=== PATIENT | female | born 1960 | race Hispanic/Latino ===

== ENCOUNTER 2018-09-16 13:45 | Outpatient (CLI) | payer OTHER ==
--- NOTE | 2018-09-16 19:16 | MRI ---
MRI LEFT SHOULDER WITHOUT CONTRAST 09/16/18 HISTORY: M25.215 - left shoulder pain. COMPARISON: Radiograph 09/09/18. FINDINGS: BICEPS TENDON: Mild intra-articular tendinosis. LABRUM: No definite labral tear is appreciated. CARTILAGE: There are some high grade cartilage fissures along the inferior glenoid with some cortical reactive m arrow changes. ROTATOR CUFF: There is high grade undersurface partial tearing of the anterior 1 cm fibers of the supraspinatus ten don likely due to focal full thickness perforation of the mid fibers measuring 10 mm in dimension. Th ere is moderate tendinosis of the infraspinatus tendon with interstitial delamination. MUSCLES: Muscle signal and bulk is normal. SOFT TISSUES: Moderate subacromial/subdeltoid bursal effusion. BONES: There is extensive reactive marrow changes and subcortical cyst formation of the footprint of the gre ater tuberosity. IMPRESSION: 1. Some high grade cartilage fissuring along the inferior glenoid with some cortical reactive ma rrow cystic changes. 2. Large erosions of the footprint of the greater tuberosity at the supraspinatus and infraspina tus tendon insertion. Likely sequela of chronic rotator cuff arthropathy. 3. High grade 75% thickness undersurface partial tearing of the footprint of the anterior 1 cent imeter of the supraspinatus tendon with a 5 mm gap of the torn undersurface fibers. There is extensiv e interstitial delamination of these fibers extending into the infraspinatus tendon. 4. Normal muscle signal and bulk. POS: OFF
== END 2018-09-16 13:46 | disposition home or self-care (01) ==
LOC: SCSMRI 13:45
PROVIDERS: ATTEND Orthopaedic Surgery
DX: M25.512 Pain in left shoulder (principal); M75.102 Unspecified rotator cuff tear or rupture of left shoulder, not specified as traumatic; M85.812 Other specified disorders of bone density and structure, left shoulder

== ENCOUNTER 2018-09-21 09:45 | Outpatient (CLI) | payer OTHER ==
[2018-09-21 10:54] LABS: Hemoglobin 12.7 g/dL (12.0-16.0); Mean Corpuscular HGB CONC 33.5 g/dL (32.0-36.0); Mean Corpuscular Hemoglobin 30.3 pg (27.0-31.0); Mean Corpuscular Volume 90.5 fL (78.0-98.0); Mean Platelet Volume 8.2 fL (7.4-10.4); Platelet Count 197 thou/uL (130-400); RBC Distribution Width 13.4 % (11.5-14.5); White Blood Cell (WBC) Count 7.5 thou/uL (4.8-10.8)
[2018-09-21 11:15] LABS: Anion Gap 10 mmol/L (10-20); BUN (Urea Nitrogen) 18 mg/dL (9.8-20.1); Calc. Creatinine Clearance 0 mL/min (70-130); Calcium 9.6 mg/dL (7.8-10.44); Carbon Dioxide 29 mmol/L (22-29); Chloride 104 mmol/L (98-107); Estimated GFR-MDRD 56; Glucose 199 mg/dL (70-105); Potassium 4.3 mmol/L (3.5-5.1); Sodium 139 mmol/L (136-145)
--- NOTE | 2018-09-21 15:54 | EKG ---
Test Reason : Blood Pressure : / mmHG Vent. Rate : 076 BPM Atrial Rate : 076 BPM P-R Int : 168 ms QRS Dur : 076 ms QT Int : 398 ms P-R-T Axes : 041 062 -03 degrees QTc Int : 447 ms Normal sinus rhythm Abnormal ECG Confirmed by SAI CRESPO ([id number]) on 09/21/2018 3:53:51 PM Referred By: AN Confirmed By:SAI CRESPO
== END 2018-09-21 09:46 | disposition home or self-care (01) ==
LOC: LABBT 09:45
PROVIDERS: ATTEND Orthopaedic Surgery
DX: Z01.818 Encounter for other preprocedural examination (principal); M75.122 Complete rotator cuff tear or rupture of left shoulder, not specified as traumatic; R94.31 Abnormal electrocardiogram [ECG] [EKG]
CPT/HCPCS: 80048; 85027; 93005; 93010

== ENCOUNTER 2018-09-27 07:24 | Day surgery (SDC) | payer OTHER ==
[2018-09-21 10:10] VITALS: BMI 38.4
[2018-09-27] MEDS ORDERED: Midazolam HCl 2 mg/2 ml Vial ONE (08:58)
[2018-09-27] MEDS ORDERED: Fentanyl 100 MCG/2 ML VIAL ONE ×2 (08:58→09:43)
[2018-09-27] MEDS ORDERED: Ondansetron PF 4 MG/2 ML Vial IVP PRN (09:12)
[2018-09-27] MEDS ORDERED: HYDROcodone/Acetaminophen 10/325 mg Tablet PO PRN ×2 (09:12)
[2018-09-27] MEDS ORDERED: traMADol HCl 50 MG TAB PO PRN ×2 (09:12)
[2018-09-27] MEDS ORDERED: Promethazine HCl 25 MG/ML VIAL IM PRN (09:12)
[2018-09-27] MEDS ORDERED: Zolpidem Tartrate 5 MG TAB PO PRN (09:12)
[2018-09-27] MEDS ORDERED: Ropivacaine 0.2% 550 ML 550 ML NERVE BLCK SCH (09:12)
[2018-09-27] MEDS ORDERED: Fentanyl 100 MCG/2 ML VIAL IV PRN (09:12)
[2018-09-27] MEDS ORDERED: Clindamycin/D5W 900 mg/50 ml Premix Bag ONE (09:21)
[2018-09-27] MEDS ORDERED: Levofloxacin 500 mg/D5W 100 ml Premix Bag ONE (09:21)
[2018-09-27] MEDS ORDERED: Bupivacaine/Epinephrine 0.25% 30 ML VIAL ONE (10:13)
[2018-09-27] MEDS ORDERED: Promethazine HCl 25 MG/ML VIAL ONE (11:31)
--- NOTE | 2018-09-27 11:36 | OP ---
DATE OF PROCEDURE: 09/27/2018 PREOPERATIVE DIAGNOSIS: Left full thickness rotator cuff tear. POSTOPERATIVE DIAGNOSIS: Left full thickness rotator cuff tear. PROCEDURE PERFORMED: Left arthroscopic rotator cuff repair, transosseous double row equivalent. STAFF: Papa Elizabeth M.D. HELICOPTER PILOT INSTRUCTOR: None. ANESTHESIA: Do. The patient received general endotracheal intubation, interscalene block. ESTIMATED BLOOD LOSS: 30 mL. TOURNIQUET TIME: None. IMPLANTS: Arthrex 5.5 corkscrew and Arthrex 4.7 SwiveLock. ANTIBIOTICS: Levaquin 500, clindamycin 900. COMPLICATIONS: None. HISTORY OF PRESENT ILLNESS: Ms. Delgado is a 58-year-old female who presented to me with left should er pain. The patient states the pain has been present since May when she relocated from [place]. The pain can be as high as 10/10, history of right rotator cuff repair. She had MRI with full thick ness rotator cuff tear. I discussed with patient the risks and benefits of surgery to include pain, scar, bleeding, infection, damage to vital structures, decreased range of motion or strength, continu ed pain despite surgical intervention, loss of life or limb. The patient understood the risks and be nefits and elected to proceed. PROCEDURE NOTE: Timeout was performed designating the patient's left upper extremity as the operativ e site based on sight, consents, markings. After completion of timeout, the patient was placed in be ach chair position. Left upper extremity was prepped and draped in sterile fashion. Posterior worki ng portals were placed, visualize intraarticularly. You could see the tear intraarticularly, I saw t he biceps which was intact. The subscap had kind of a leading edge tear, but otherwise intact. I di d not see anything in the labrum, glenoid or humerus. I then moved subacromially and debrided the bu rsa, took down the patient's CA ligament, found my footprint for the tear in the rotator cuff. I chanel rided off the bone at the rotator cuff insertion, place my anchor, 5.5 corkscrew into position, passe d four sutures in horizontal mattress fashion, tied 2 knots and placed it down into the second row wi th my 4.7 SwiveLock. There was still a little bit of dog ears so I took one of the strands of the Sw iveLock and used that to tie down the little small dog ear. I then took final pictures, washed and c losed with 3-0 nylon. The patient will follow up with me in 2 weeks. The patient will remain in her elbow sling. Elbow, w rist, and hand motion. The patient will begin passive range of motion at the 2-week prema.
[2018-09-27] MEDS ORDERED: Ropivacaine 0.2% HCl/PF (40 MG/20 ML VIAL) ONE (13:32)
[2018-09-27] MEDS ORDERED: Bupivacaine HCl 0.5%/Epinephrine 1:200,000/PF 30 ml Vial ONE (13:32)
[2018-09-27] MEDS ORDERED: Ondansetron PF 4 MG/2 ML Vial ONE (13:36)
[2018-09-27] MEDS ORDERED: ePHEDrine/0.9% NaCl/PF SYRINGE 50 mg/10 ml ONE (13:36)
[2018-09-27] MEDS ORDERED: Lidocaine 1% PF 5 ML VIAL ONE (13:36)
[2018-09-27] MEDS ORDERED: PROPOFOL 200 MG/20 ML VIAL ONE (13:36)
[2018-09-27] MEDS ORDERED: PHENYLEPHRINE-NS 100 MCG/ML 10 ML SYRINGE ONE (13:36)
[2018-09-27] MEDS ORDERED: Glycopyrrolate 0.2 MG/ML 5 ML SYRINGE ONE (13:36)
== END 2018-09-27 14:54 | disposition home or self-care (01) ==
LOC: SDC 07:24
PROVIDERS: ATTEND Orthopaedic Surgery
PROC: 0LQ24ZZ Repair Left Shoulder Tendon, Percutaneous Endoscopic Approach (ICD-10-PCS; principal; 2018-09-27)
DX: M75.122 Complete rotator cuff tear or rupture of left shoulder, not specified as traumatic (principal); E11.9 Type 2 diabetes mellitus without complications; M10.9 Gout, unspecified; E78.00 Pure hypercholesterolemia, unspecified; J45.909 Unspecified asthma, uncomplicated; Z87.891 Personal history of nicotine dependence; Z88.0 Allergy status to penicillin; Z88.2 Allergy status to sulfonamides; Z88.6 Allergy status to analgesic agent; Z79.4 Long term (current) use of insulin; Z79.899 Other long term (current) drug therapy
CPT/HCPCS: 36416; 96374; A4306; C1713; J1956; J2250; J2550; J2795; J3010; J3490

== ENCOUNTER 2019-03-01 11:22 | Day surgery (SDC) | payer OTHER ==
[2019-02-28 11:45] VITALS: BMI 37.2
--- NOTE | 2019-03-01 07:42 | HP ---
HISTORY OF PRESENT ILLNESS: This is a 58-year-old female, comes for EGD because of abdominal pain. The patient has had abdominal pain over the last several months. She has noted chronic acid reflux and had an EGD done 6 years ago. She was told to have esophagitis and placed on PPI. The patient comes in with abdominal pain and also nausea. The pain is over the epigastric area. The pain is burning in nature. The pain occurs every day. The patient is undergoing EGD because of abdominal pain in spite of taking famotidine and also omeprazole, etc. ALLERGIES: ALLERGIC TO PENICILLIN, SULFA, AND IBUPROFEN. SOCIAL HISTORY: The patient quit smoking 18 years ago. Does not drink alcohol. MEDICAL ILLNESSES: 1. Diabetes mellitus. 2. Hypertension. 3. Hyperlipidemia. 4. Hypothyroidism. 5. Obesity. 6. Osteoarthritis. 7. Anxiety and depression. 8. Migraine headache. 9. Chronic kidney disease. 10. Hysterectomy. 11. Appendectomy. 12. Cholecystectomy. 13. Status post bilateral shoulder surgery. PHYSICAL EXAMINATION: VITAL SIGNS: Pulse is 70, blood pressure 130/70. HEENT: Conjunctivae clear. CARDIOVASCULAR: First and second heart sounds heard. LUNGS: Clear to auscultation. ABDOMEN: Soft. Abdomen is tender over the epigastric area. There is no rebound or guarding. Bowel sounds normal. ADMITTING DIAGNOSES: Abdominal pain, chronic acid reflux. Her symptoms persists after taking omeprazole, femotadine, and ranitidine. The patient is undergoing esophagogastroduodenoscopy. Job ID: [id number]
[2019-03-01] MEDS ORDERED: Insulin Regular 300 UNITS/3 ML VIAL ONE (12:14)
[2019-03-01] MEDS ORDERED: Lidocaine 1% PF 5 ML VIAL ONE (13:47)
[2019-03-01] MEDS ORDERED: PROPOFOL 200 MG/20 ML VIAL ONE (13:47)
--- NOTE | 2019-03-01 17:36 | OP ---
DATE OF PROCEDURE: 03/01/2019 OPERATIVE PROCEDURES: Esophagogastroduodenoscopy with biopsy. PREOPERATIVE DIAGNOSES: Abdominal pain and chronic acid reflux. POSTOPERATIVE DIAGNOSES: 1. Two small erosion of the gastroesophageal junction, otherwise normal exam of mucosa. 2. Mild antral gastritis. DESCRIPTION OF PROCEDURE: The patient was placed on the left lateral position and was given sedation by Anesthesia Department. A Pentax videogastroscope under direct vision passed down the oropharynx past the GE junction into the stomach and subsequently into the descending duodenum. The vocal cords appeared healthy. The esophagus appeared normal throughout the scope. At the GE junction, the patient was found to have 2 small erosions. Biopsy obtained from the area. Retroflexion failed to show any pathology in the fundus and cardia. In the gastric body, no pathology. The gastric antrum indicating gastritis. Biopsy obtained of the gastric antrum and gastric body. The duodenal bulb and descending duodenum, no pathology. The stomach decompressed and scope removed. DISCHARGE PLAN: This is a 58-year-old female with abdominal pain, chronic acid reflux, came for the EGD. The EGD showed 2 small erosions over the GE junction and mild gastritis. The patient did well postprocedure to be discharged home. DISCHARGE INSTRUCTIONS: 1. May try omeprazole 40 once a day. 2. We will await the gastric biopsy and further recommendation. Job ID: [id number]
== END 2019-03-01 15:10 | disposition home or self-care (01) ==
LOC: SDC 11:22
PROVIDERS: ATTEND Internal Medicine Gastroenterology
PROC: 0DB58ZX Excision of Esophagus, Via Natural or Artificial Opening Endoscopic, Diagnostic (ICD-10-PCS; principal; 2019-03-01)
PROC: 0DB68ZX Excision of Stomach, Via Natural or Artificial Opening Endoscopic, Diagnostic (ICD-10-PCS; principal; 2019-03-01)
DX: K22.10 Ulcer of esophagus without bleeding (principal); K21.0 Gastro-esophageal reflux disease with esophagitis; K29.60 Other gastritis without bleeding; R10.9 Unspecified abdominal pain; I12.9 Hypertensive chronic kidney disease with stage 1 through stage 4 chronic kidney disease, or unspecified chronic kidney disease; N18.9 Chronic kidney disease, unspecified; E11.22 Type 2 diabetes mellitus with diabetic chronic kidney disease; E03.9 Hypothyroidism, unspecified; E66.9 Obesity, unspecified; M19.90 Unspecified osteoarthritis, unspecified site; F41.8 Other specified anxiety disorders; F32.9 Major depressive disorder, single episode, unspecified; G43.909 Migraine, unspecified, not intractable, without status migrainosus; Z68.37 Body mass index [BMI] 37.0-37.9, adult; Z87.891 Personal history of nicotine dependence; Z88.2 Allergy status to sulfonamides; Z88.8 Allergy status to other drugs, medicaments and biological substances
CPT/HCPCS: 36416; 88305; 88312; 88313; J1815; J2001; J2704

== ENCOUNTER 2019-08-03 15:31 | Emergency (ER) | payer OTHER ==
[2019-08-03 17:40] LABS: #Basophils 0.1 thou/uL (0.0-0.2); #Eosinphils 0.2 thou/uL (0.0-0.7); #Lymphocytes 1.7 thou/uL (1.20-3.40); #Monocytes 0.4 thou/uL (0.11-0.59); #Neutrophils 2.3 thou/uL (1.40-6.50); %Basophils 1.3 % (0.0-1.0); %Eosinophils 4.7 % (0.0-10.0); %Lymphocytes 36.9 % (21.0-51.0); %Monocytes 8.5 % (0.0-10.0); %Neutrophils 48.7 % (42.0-75.0); Hemoglobin 12.7 g/dL (12.0-16.0); Mean Corpuscular HGB CONC 34.7 g/dL (32.0-36.0); Mean Corpuscular Volume 86.5 fL (78.0-98.0); Mean Platelet Volume 9.2 fL (7.4-10.4); Platelet Count 120 thou/uL (130-400); RBC Distribution Width 12.5 % (11.5-14.5); Red Blood Cell (RBC) Count 4.24 mill/uL (4.20-5.40); White Blood Cell (WBC) Count 4.7 thou/uL (4.8-10.8)
--- NOTE | 2019-08-03 17:54 | RAD ---
RADIOGRAPH CHEST 2 VIEWS: DATE: 08/03/2019 HISTORY: 59-year-old female with cough and fever FINDINGS: There is no airspace density, pulmonary edema, pleural effusion, pneumothorax, or cardiomegaly. IMPRESSION: No acute cardiopulmonary findings.
[2019-08-03 18:02] LABS: ALT (SGPT) 16 U/L (8-55); AST (SGOT) 17 U/L (5-34); Alkaline Phosphatase 100 U/L (40-150); Anion Gap 13 mmol/L (10-20); BUN (Urea Nitrogen) 15 mg/dL (9.8-20.1); Bilirubin, Total 0.5 mg/dL (0.2-1.2); Calc. Creatinine Clearance 0 mL/min (70-130); Calcium 8.4 mg/dL (7.8-10.44); Carbon Dioxide 22 mmol/L (22-29); Chloride 102 mmol/L (98-107); Estimated GFR-MDRD 46; Globulin 2.4 g/dL (2.4-3.5); Glucose 410 mg/dL (70-105); Potassium 3.7 mmol/L (3.5-5.1); Protein, Total 6.4 g/dL (6.0-8.3); Sodium 133 mmol/L (136-145)
[2019-08-03] MEDS ORDERED: Insulin Regular 300 UNITS/3 ML VIAL ONE (18:59)
--- NOTE | 2019-08-05 15:36 | EKG ---
Test Reason : Blood Pressure : / mmHG Vent. Rate : 072 BPM Atrial Rate : 072 BPM P-R Int : 180 ms QRS Dur : 074 ms QT Int : 408 ms P-R-T Axes : 031 052 025 degrees QTc Int : 446 ms Normal sinus rhythm Low voltage QRS Nonspecific T wave abnormality Abnormal ECG Confirmed by NIKI CAO ([id number]), editorial assistant TAIWO ISSA ([id number]) on 08/05/2019 3:36:08 PM Referred By: Confirmed By:NIKI CAO
== END 2019-08-03 19:58 | disposition home or self-care (01) ==
LOC: ERS 15:31
DX: J04.0 Acute laryngitis (principal); E11.9 Type 2 diabetes mellitus without complications; I10 Essential (primary) hypertension; K21.9 Gastro-esophageal reflux disease without esophagitis; M19.90 Unspecified osteoarthritis, unspecified site; J45.909 Unspecified asthma, uncomplicated; F41.9 Anxiety disorder, unspecified; F32.9 Major depressive disorder, single episode, unspecified; Z87.891 Personal history of nicotine dependence; Z79.899 Other long term (current) drug therapy; Z85.850 Personal history of malignant neoplasm of thyroid; Z79.4 Long term (current) use of insulin
CPT/HCPCS: 36415; 36416; 71046; 80053; 84484; 85025; 85379; 93005; 94640; 94760; 96361; 96374; J1815; J7620

== ENCOUNTER 2019-11-26 11:57 | Observation (INO) | payer OTHER ==
[~2019-11-26 11:57] MED LIST: Iopamidol-370 76% 500 ML 1 ML ONE
[2019-11-26 12:48] LABS: #Basophils 0.1 thou/uL (0.0-0.2); #Eosinphils 0.2 thou/uL (0.0-0.7); #Monocytes 0.5 thou/uL (0.11-0.59); #Neutrophils 5.4 thou/uL (1.40-6.50); %Basophils 0.6 % (0.0-1.0); %Eosinophils 2.4 % (0.0-10.0); %Lymphocytes 23.9 % (21.0-51.0); %Monocytes 6.5 % (0.0-10.0); %Neutrophils 66.6 % (42.0-75.0); Hemoglobin 13.5 g/dL (12.0-16.0); Mean Corpuscular HGB CONC 34.6 g/dL (32.0-36.0); Mean Corpuscular Hemoglobin 29.4 pg (27.0-31.0); Mean Platelet Volume 9.5 fL (7.4-10.4); Platelet Count 208 thou/uL (130-400); RBC Distribution Width 12.2 % (11.5-14.5); White Blood Cell (WBC) Count 8.1 thou/uL (4.8-10.8)
[2019-11-26] MEDS ORDERED: Morphine 4 MG/ML VIAL ONE ×2 (12:56→15:24)
[2019-11-26] MEDS ORDERED: Ondansetron PF 4 MG/2 ML Vial ONE (12:56)
[2019-11-26 13:02] LABS: Bilirubin Negative (Negative); Blood, Urine Negative (Negative); Clarity Clear (Clear); Glucose, Urine (Dipstick) Greater than 1000 mg/dL (Negative); Leukocyte Negative Leu/uL (Negative); Nitrite Negative (Negative); Protein, Urine (Dipstick) Negative (Neg-Trace); Urobilinogen Normal mg/dL (Less than 2)
[2019-11-26 13:11] LABS: ALT (SGPT) 11 U/L (8-55); AST (SGOT) 9 U/L (5-34); Albumin 4.4 g/dL (3.5-5.0); Alkaline Phosphatase 126 U/L (40-110); Anion Gap 17 mmol/L (10-20); BUN (Urea Nitrogen) 17 mg/dL (9.8-20.1); Bilirubin, Total 0.7 mg/dL (0.2-1.2); Calc. Creatinine Clearance 0 mL/min (70-130); Calcium 9.8 mg/dL (7.8-10.44); Carbon Dioxide 18 mmol/L (22-29); Chloride 101 mmol/L (98-107); Estimated GFR-MDRD 50; Globulin 3.6 g/dL (2.4-3.5); Glucose 426 mg/dL (70-105); Potassium 4.2 mmol/L (3.5-5.1); Sodium 132 mmol/L (136-145)
--- NOTE | 2019-11-26 14:30 | CT ---
CT ABDOMEN AND PELVIS WITH IV CONTRAST: HISTORY: Abdominal pain. Diverticulitis. COMPARISON: 02/18/2017 FINDINGS: The lung bases are unremarkable. There is an incompletely visualized right pericardiac cyst, measurin g 6 cm in AP dimension. There is fatty infiltration of the liver. The patient is post cholecystectomy and hysterectomy. The spleen, pancreas, adrenal glands and kidneys are unremarkable. No free air, fr ee fluid or lymphadenopathy is seen in the abdomen or pelvis. There are vascular calcifications witho ut evidence of aneurysmal dilatation of the abdominal aorta. There are degenerative changes in the sp ine. The small bowel loops are not abnormally dilated. There is colonic diverticulosis. There is thickenin g of the wall of the sigmoid colon and pericolonic inflammatory change in the left lower quadrant. IMPRESSION: Sigmoid diverticulitis in the left lower quadrant. POS: DAVIS
[2019-11-26] MEDS ORDERED: metroNIDAZOLE 500 MG/100 ML BAG ONE (15:26)
[2019-11-26] MEDS ORDERED: Ondansetron ODT 4 MG TAB SL PRN (18:05)
[2019-11-26] MEDS ORDERED: Sodium Chloride 0.9% 1,000 ML IV SCH (18:05)
[2019-11-26] MEDS ORDERED: Ondansetron PF 4 MG/2 ML Vial IVP PRN ×2 (18:05→19:23)
[2019-11-26 18:34] VITALS: BMI 38.2
[2019-11-26] MEDS ORDERED: Acetaminophen 325 MG TAB PO PRN (19:23)
[2019-11-26] MEDS ORDERED: Dextrose 5% in Water 1,000 ML IV PRN (19:23)
[2019-11-26] MEDS ORDERED: Ondansetron ODT 4 MG TAB PO PRN (19:23)
[2019-11-26] MEDS ORDERED: Albuterol Sulfate 1.25 MG/3 ML NEB NEB PRN (19:27)
[2019-11-26] MEDS ORDERED: Morphine 2 MG/ML SYRINGE SLOW IVP PRN (19:27)
[2019-11-26] MEDS ORDERED: Dextrose 50% Abboject 50 ML SYRINGE SLOW IVP PRN (19:29)
--- NOTE | 2019-11-26 20:36 | HP ---
CHIEF COMPLAINT: "My diverticulitis flared up." HISTORY OF PRESENT ILLNESS: This is a 59-year-old female with history of type 2 diabetes, on insulin; chronic kidney disease, stage 3; hypertension; dyslipidemia; thyroid cancer with history of thyroidectomy, chemo and radiation; asthma who presents to the emergency room with the above complaint. The patient reports the last flare was in September for which she was seen in the ER, discharged to home , and had about one week of symptoms. She reports onset of left-sided abdominal pain, described as sharp, constant, and a bloating sensation along the left side starting 2 days ago. She denies any radiation, states the pain was 10/10 earlier, and with pain medication is now 7/10. She has associated nausea but no vomiting, denies any fevers or chills. She reports this is identical to flares in the past, and reports a change in her diet that she thinks attributed to the onset. She denies any relieving factors. In the emergency room, the patient received Cipro 400 mg IV, Flagyl 500 mg IV, morphine 4 mg x2, Zofran 4 mg, 2 L IV fluid, and hospitalist called for admission. ALLERGIES: ALLERGIES TO MEDICINE ARE, 1. ASPIRIN. 2. CODEINE. 3. IBUPROFEN. 4. PENICILLINS. 5. SULFA. CURRENT MEDICATIONS: Reconciled with the patient, 1. Vitamin D 5000 units daily. 2. BuSpar 10 mg t.i.d. 3. Levothyroxine 150 mcg daily. 4. Atorvastatin 80 mg daily. 5. Lisinopril 20 mg daily. 6. Levemir 50 units twice daily. 7. NovoLog sliding scale for which she uses between 1 and 20 units with meals. 8. Albuterol as needed. PAST MEDICAL HISTORY: 1. Dyslipidemia. 2. Anxiety. 3. Chronic kidney disease, stage 3. 4. Type 2 diabetes, on insulin. 5. GERD. 6. Hypertension. 7. Asthma. 8. Diverticulitis. 9. Thyroid cancer, status post thyroidectomy, chemo, radiation. PAST SURGICAL HISTORY: 1. Appendectomy. 2. Cholecystectomy. 3. section. 4. Hysterectomy. 5. Tonsillectomy. 6. Thyroidectomy. 7. Bilateral shoulders. SOCIAL HISTORY: The patient quit tobacco about 5 years ago, she lives alone, and her sister, Bridget is her surrogate decision maker. She is a full code. FAMILY HISTORY: Negative for any GI disorders. REVIEW OF SYSTEMS: Positive for nausea, negative for vomiting, fevers, chills, diarrhea, shortness of breath, or chest pain. All remaining review of systems are reviewed and negative. PHYSICAL EXAMINATION: VITAL SIGNS: Temperature 97.6, pulse 75, respirations 15, sat 99% on room air, and blood pressure 124/70. GENERAL: Awake, alert, responsive, in no apparent distress. Able to speak in full sentences. HEENT: Her pupils are equal and round. Oral mucosa is pink and moist. NECK: Supple. Tenderness to palpation in the left submental area. No palpable abnormalities. LYMPH: No palpable anterior cervical lymphadenopathy. LUNGS: Some faint basilar rales at the right base, no audible wheezing or rhonchi. Good air movement. HEART: Normal S1, S2. No significant murmur. ABDOMEN: Soft with present bowel sounds. Tenderness to palpation throughout the left side. No palpable abnormalities. SKIN: No visible rashes. EXTREMITIES: No clubbing, cyanosis, or edema. VASCULAR: 2+ dorsalis pedis pulses. NEURO: No gross deficits. PSYCH: Appears euthymic. LABORATORY DATA: Labs reviewed today. CBC: 8.1, 13.5, 39.1, 208. Renal panel: 132, 4.2, 101, 18, 17, 1.11, 426, the sodium does correct to normal. T-bilirubin 0.7, AST 9, ALT 11, alkaline phosphatase 126, total protein 8, and albumin 4.4. Urine greater than [address] abdomen and pelvis personally reviewed, sigmoid diverticulitis in the left lower quadrant, lung bases unremarkable, incompletely visualized right pericardiac cyst, measuring 6 cm, fatty infiltration of the liver. IMPRESSION: 1. Sigmoid diverticulitis. 2. Chronic kidney disease, stage 3, stable. 3. Diabetes mellitus type 2, uncontrolled. 4. Hypertension, appears controlled. 5. Anxiety. 6. Dyslipidemia. 7. Asthma, no signs of exacerbation. 8. Hypothyroidism secondary to thyroidectomy. 9. GERD. 10. Fatty liver based on CT scan. 11. Pericardiac cyst based on CT scan. PLAN: 1. Observation status in the hospital. 2. Gentle hydration, clear liquid diet. 3. Continue Cipro and Flagyl IV. Transition to oral as she is able to take it. 4. Continuing pain management. 5. Hold lisinopril for now, monitor renal function and resume when bp's are elevated. 6. We will continue her thyroid replacement, statin. 7. Continuing Levemir at the 50 units twice a day, adding a sliding scale insulin. 8. Albuterol p.r.n. if needed. 9. We will need outpatient followup for the pericardiac cyst and fatty liver. 10. Anticipated length of stay is 24 hours to start, will be based on ability to manage pain with p.o. pain medication. 11. DVT prophylaxis. The patient is ambulatory. We will use SCDs. 12. GI prophylaxis, not indicated. 13. Code status is full. Surrogate decision maker is the patient's sister. 14. Reviewed the plan of care with the patient. No questions or further needs at the end of evaluation. 15. The patient is at high risk given age, comorbidities, and current presentation. Job ID: [id number] MTDD
[2019-11-26] MEDS: metroNIDAZOLE 500 MG in Premix Bag 1 BAG IVPB SCH (20:45)
[2019-11-26] MEDS: Sodium Chloride 0.9% 1,000 ML IV SCH (20:45)
[2019-11-26] MEDS: busPIRone HCl 10 MG TAB PO SCH (20:45)
[2019-11-26] MEDS: Atorvastatin Calcium 40 MG TAB PO SCH (20:46)
[2019-11-26] MEDS: Morphine 4 MG/ML VIAL SLOW IVP PRN (20:46)
[2019-11-26] MEDS: HumaLOG 300 UNITS/3 ML VIAL SC PRN (20:54)
[2019-11-26] MEDS ORDERED: Insulin Glargine 50 UNITS in Pre-Filled Syringe SC SCH (21:00)
[2019-11-27] MEDS: Morphine 4 MG/ML VIAL SLOW IVP PRN (02:14)
[2019-11-27 04:38] LABS: #Basophils 0.1 thou/uL (0.0-0.2); #Eosinphils 0.2 thou/uL (0.0-0.7); #Lymphocytes 1.5 thou/uL (1.20-3.40); #Monocytes 0.6 thou/uL (0.11-0.59); #Neutrophils 5.4 thou/uL (1.40-6.50); %Basophils 0.7 % (0.0-1.0); %Eosinophils 2.6 % (0.0-10.0); %Lymphocytes 19.6 % (21.0-51.0); %Monocytes 7.7 % (0.0-10.0); %Neutrophils 69.4 % (42.0-75.0); Hemoglobin 11.4 g/dL (12.0-16.0); Mean Corpuscular HGB CONC 33.6 g/dL (32.0-36.0); Mean Corpuscular Hemoglobin 29.1 pg (27.0-31.0); Mean Corpuscular Volume 86.5 fL (78.0-98.0); Mean Platelet Volume 9.6 fL (7.4-10.4); Platelet Count 168 thou/uL (130-400); Red Blood Cell (RBC) Count 3.93 mill/uL (4.20-5.40); White Blood Cell (WBC) Count 7.8 thou/uL (4.8-10.8)
[2019-11-27 05:00] LABS: Anion Gap 11 mmol/L (10-20); BUN (Urea Nitrogen) 12 mg/dL (9.8-20.1); Calc. Creatinine Clearance 116 mL/min (70-130); Calcium 8.3 mg/dL (7.8-10.44); Carbon Dioxide 21 mmol/L (22-29); Chloride 108 mmol/L (98-107); Estimated GFR-MDRD 72; Glucose 288 mg/dL (70-105); Potassium 4.1 mmol/L (3.5-5.1); Sodium 136 mmol/L (136-145)
[2019-11-27] MEDS: Levothyroxine 150 MCG TAB PO SCH (05:17)
[2019-11-27] MEDS: metroNIDAZOLE 500 MG in Premix Bag 1 BAG IVPB SCH (05:17)
[2019-11-27] MEDS: HumaLOG 300 UNITS/3 ML VIAL SC PRN ×3 (06:17→21:07)
[2019-11-27] MEDS: traMADol HCl 50 MG TAB PO PRN ×3 (08:32→18:45)
[2019-11-27] MEDS: busPIRone HCl 10 MG TAB PO SCH ×3 (08:32→20:25)
--- NOTE | 2019-11-27 08:43 | PDOC.FM ---
- Subjective Subjective: Pt reports abdominal pain is marginally better, she has just eaten breakfast and is tolerating it so far. Denies new complaints no fever/chills, nausea/no vomiting. - Objective Vital Signs & Weight: Vital Signs (12 hours) Temp Pulse Resp BP BP Pulse Ox 11/27/19 07:05 98.6 F 77 20 118/55 L 96 11/27/19 03:03 98.9 F 84 18 118/72 98 11/26/19 23:20 98.2 F 77 16 99/50 L 94 L Weight Weight 98.021 kg I&O: 11/26/19 11/27/19 11/28/19 06:59 06:59 06:59 Intake Total 740 Output Total 1200 Balance -460 Result Diagrams: 11/27/19 04:19 11/27/19 04:19 Phys Exam - Physical Examination Constitutional: NAD HEENT: moist MMs, sclera anicteric Neck: supple, full ROM Respiratory: no wheezing, clear to auscultation bilateral Cardiovascular: RRR, no significant murmur Gastrointestinal: soft TTP to L quadrants, no rebound tenderness Musculoskeletal: no edema, pulses present Neurological: normal sensation, moves all 4 limbs Psychiatric: normal affect, A&O x 3 Skin: no rash, normal turgor Dx/Plan (1) Acute diverticulitis Code(s): K57.92 - DVTRCLI OF INTEST, PART UNSP, W/O PERF OR ABSCESS W/O BLEED Status: Acute (2) Dehydration Code(s): E86.0 - DEHYDRATION Status: Acute (3) Hyperglycemia due to type 2 diabetes mellitus Code(s): E11.65 - TYPE 2 DIABETES MELLITUS WITH HYPERGLYCEMIA Status: Acute (4) Morbid obesity with BMI of 40.0-44.9, adult Code(s): E66.01 - MORBID (SEVERE) OBESITY DUE TO EXCESS CALORIES; Z68.41 - BODY MASS INDEX (BMI) 40.0-44.9, ADULT Status: Chronic - Plan Plan: Acute uncomplicated diverticulitis A- admitted for IV ABX and pain control. Pain seems to be improving, tolerating PO now P-Continue IV flagyl and cipro -will transition to PO Tramadol for pain as trial -monitor pts pain control and PO intake, possible DC later today vs. tomorrow DM2 A- fasting sugars elevated indicating poor control P- will consider increasing insulin -SSI, ACHS accuchecks CKD3, GERD, HTN, Asthma -stable, continue home meds CODE: FULL Addendum - Attending - Attending Attestation Date/Time: 11/27/19 3112 I personally evaluated the patient and discussed the management with Dr. Farris. I agree with the History, Examination, Assessment and Plan documented above with any addition or exceptions noted below.
[2019-11-27] MEDS: Insulin Glargine 55 UNITS in Pre-Filled Syringe 1 EACH SC SCH (09:00)
[2019-11-27] MEDS ORDERED: Insulin Glargine 50 UNITS in Pre-Filled Syringe SC SCH (09:00)
[2019-11-27] MEDS: metroNIDAZOLE 500 MG TAB PO SCH ×2 (15:39→20:25)
[2019-11-27] MEDS: Sodium Chloride 0.9% 1,000 ML IV SCH (18:28)
[2019-11-27] MEDS: Cipro 250 MG TAB PO SCH (20:25)
[2019-11-27] MEDS: Atorvastatin Calcium 40 MG TAB PO SCH (20:25)
[2019-11-27] MEDS ORDERED: Insulin Glargine 55 UNITS in Pre-Filled Syringe 1 EACH SC SCH (21:00)
[2019-11-28] MEDS: traMADol HCl 50 MG TAB PO PRN ×2 (04:08→11:12)
[2019-11-28] MEDS: Levothyroxine 150 MCG TAB PO SCH (04:08)
[2019-11-28] MEDS: Cipro 250 MG TAB PO SCH (04:08)
[2019-11-28] MEDS: Insulin Glargine 55 UNITS in Pre-Filled Syringe 1 EACH SC SCH (08:22)
[2019-11-28] MEDS: busPIRone HCl 10 MG TAB PO SCH (08:22)
[2019-11-28] MEDS: metroNIDAZOLE 500 MG TAB PO SCH (08:22)
--- NOTE | 2019-11-28 09:00 | PDOC.FM ---
- Subjective Subjective: feeling much better, no baseline abd pain, no nausea/vomiting. no new complaints. - Objective Vital Signs & Weight: Vital Signs (12 hours) Temp Pulse Resp BP BP Pulse Ox 11/28/19 07:10 98.3 F 74 15 124/60 96 11/28/19 04:06 98.9 F 79 16 126/58 L 96 11/27/19 23:00 98.2 F 71 16 126/58 L 97 Weight Weight 98.021 kg I&O: 11/27/19 11/28/19 11/29/19 06:59 06:59 06:59 Intake Total 740 1740 Output Total 1200 405 Balance -460 1335 Result Diagrams: 11/27/19 04:19 11/27/19 04:19 Phys Exam - Physical Examination Constitutional: NAD HEENT: moist MMs, sclera anicteric Neck: no nodes, supple Respiratory: no wheezing, clear to auscultation bilateral Cardiovascular: RRR, no significant murmur Gastrointestinal: soft mild ttp in LLQ Musculoskeletal: no edema, pulses present Neurological: normal sensation, moves all 4 limbs Psychiatric: normal affect, A&O x 3 Skin: no rash, normal turgor Dx/Plan (1) Acute diverticulitis Code(s): K57.92 - DVTRCLI OF INTEST, PART UNSP, W/O PERF OR ABSCESS W/O BLEED Status: Acute (2) Dehydration Code(s): E86.0 - DEHYDRATION Status: Acute (3) Hyperglycemia due to type 2 diabetes mellitus Code(s): E11.65 - TYPE 2 DIABETES MELLITUS WITH HYPERGLYCEMIA Status: Acute (4) Morbid obesity with BMI of 40.0-44.9, adult Code(s): E66.01 - MORBID (SEVERE) OBESITY DUE TO EXCESS CALORIES; Z68.41 - BODY MASS INDEX (BMI) 40.0-44.9, ADULT Status: Chronic - Plan Plan: Acute uncomplicated diverticulitis A- resolving, stable for DC P-Continue PO flagyl and cipro -PO tramadol for pain -will DC home CKD3, GERD, HTN, Asthma, DM2 -stable, continue home meds CODE: FULL Addendum - Attending - Attending Attestation Date/Time: 11/28/19 3510 I personally evaluated the patient and discussed the management with the team. I agree with the History, Examination, Assessment and Plan documented above with any addition or exceptions noted below. Pain has improved, tolerating PO, d/c today.
[2019-11-28] MEDS: HumaLOG 300 UNITS/3 ML VIAL SC PRN (11:08)
[2019-11-28 11:32] VITALS: BP 115/57; TEMP 97.6
--- NOTE | 2019-11-29 04:25 | DIS ---
DATE OF ADMISSION: 11/26/2019 DATE OF DISCHARGE: 11/28/2019 ADMITTING ATTENDING: Hospitalist, Niurka Juarez MD DISCHARGE ATTENDING: Wilfrido Olivier MD RESIDENT: Miguel Angel Farris MD CONSULTS: None. PROCEDURES PERFORMED: On 11/26/2019, abdomen and pelvis CT. Impression: Sigmoid diverticulitis in the left lower quadrant. DISCHARGE MEDICATIONS: 1. Insulin Levemir 50 units subcutaneous b.i.d. 2. Buspirone 10 mg p.o. t.i.d. 3. Atorvastatin 80 mg p.o. at bedtime. 4. Lisinopril 20 mg p.o. q.a.m. 5. Levothyroxine 150 mcg p.o. q.a.m. 6. Vitamin D 5000 units p.o. daily. 7. Famotidine 40 mg p.o. at bedtime. 8. Ciprofloxacin 500 mg p.o. b.i.d. x8 days. 9. Metronidazole 500 mg p.o. t.i.d. x8 days. 10. Tramadol 50 mg p.o. q.4 hours p.r.n. DISCONTINUED MEDICATIONS: None. PRIMARY DIAGNOSES: Acute on chronic uncomplicated diverticulitis and intractable abdominal pain. SECONDARY DIAGNOSES: Chronic kidney disease 3, gastroesophageal reflux disease, hypertension, asthma, type 2 diabetes. HISTORY OF PRESENT ILLNESS/HOSPITAL COURSE: This is a 59-year-old female, who presented with intractable abdominal pain, which was found to be secondary to uncomplicated diverticulitis. The patient was admitted for IV antibiotics and pain control, which was achieved initially with [place]. The patient quickly transitioned to p.o. antibiotics and p.o. tramadol for pain control and did well over the couple of days. DISPOSITION: Stable. DISCHARGE INSTRUCTIONS: 1. Location: Home. 2. Activity: As tolerated. 3. Diet: Diabetic. 4. Followup: Follow up with PCP in 7 days. Job ID: [id number] [facility]
== END 2019-11-28 12:43 | disposition home or self-care (01) ==
LOC: ERS 11:57 → 2SW 18:16
PROVIDERS: ADMIT Family Medicine; ATTEND Family Medicine
DX: K57.32 Diverticulitis of large intestine without perforation or abscess without bleeding (principal); I12.9 Hypertensive chronic kidney disease with stage 1 through stage 4 chronic kidney disease, or unspecified chronic kidney disease; E11.22 Type 2 diabetes mellitus with diabetic chronic kidney disease; N18.3 Chronic kidney disease, stage 3 (moderate); J45.909 Unspecified asthma, uncomplicated; K21.9 Gastro-esophageal reflux disease without esophagitis; F41.9 Anxiety disorder, unspecified; E89.0 Postprocedural hypothyroidism; K76.0 Fatty (change of) liver, not elsewhere classified; E66.01 Morbid (severe) obesity due to excess calories; Z68.41 Body mass index [BMI] 40.0-44.9, adult; Z79.4 Long term (current) use of insulin; Z79.899 Other long term (current) drug therapy; Z88.0 Allergy status to penicillin; Z88.2 Allergy status to sulfonamides; Z88.5 Allergy status to narcotic agent; Z88.6 Allergy status to analgesic agent; Z88.8 Allergy status to other drugs, medicaments and biological substances; Z87.891 Personal history of nicotine dependence
CPT/HCPCS: 36415; 36416; 74177; 80048; 80053; 81003; 83605; 85025; 96361; 96365; 96366; 96367; 96375; 96376; G0378; J0744; J1815; J2270; J2405; Q0162; Q9967

== ENCOUNTER 2020-02-09 05:26 | Outpatient (CLI) | payer OTHER ==
[2020-02-09 10:35] LABS: #Eosinphils 0.2 thou/uL (0.0-0.7); #Lymphocytes 2.3 thou/uL (1.20-3.40); #Monocytes 0.4 thou/uL (0.11-0.59); #Neutrophils 4.2 thou/uL (1.40-6.50); %Basophils 0.5 % (0.0-1.0); %Eosinophils 2.8 % (0.0-10.0); %Lymphocytes 31.9 % (21.0-51.0); %Monocytes 5.9 % (0.0-10.0); Hemoglobin 13.9 g/dL (12.0-16.0); Mean Corpuscular HGB CONC 33.2 g/dL (32.0-36.0); Mean Corpuscular Hemoglobin 28.5 pg (27.0-31.0); Mean Corpuscular Volume 85.9 fL (78.0-98.0); Mean Platelet Volume 9.2 fL (7.4-10.4); Platelet Count 194 thou/uL (130-400); RBC Distribution Width 12.7 % (11.5-14.5); Red Blood Cell (RBC) Count 4.87 mill/uL (4.20-5.40); White Blood Cell (WBC) Count 7.2 thou/uL (4.8-10.8)
[2020-02-09 10:42] LABS: Hemoglobin A1c 12.4 % (4.0-6.0)
[2020-02-09 10:54] LABS: Anion Gap 14 mmol/L (10-20); BUN (Urea Nitrogen) 21 mg/dL (9.8-20.1); Calc. Creatinine Clearance 0 mL/min (70-130); Calcium 10.3 mg/dL (7.8-10.44); Carbon Dioxide 23 mmol/L (22-29); Chloride 102 mmol/L (98-107); Estimated GFR-MDRD 55; Glucose 286 mg/dL (70-105); Potassium 4.4 mmol/L (3.5-5.1); Sodium 135 mmol/L (136-145)
== END 2020-02-09 05:27 | disposition home or self-care (01) ==
LOC: LABBT 05:26
PROVIDERS: ATTEND Surgery
DX: Z01.812 Encounter for preprocedural laboratory examination (principal); K57.92 Diverticulitis of intestine, part unspecified, without perforation or abscess without bleeding
CPT/HCPCS: 80048; 83036; 85025

== ENCOUNTER 2020-02-09 10:00 | Inpatient (IN) | payer OTHER ==
[2020-02-09 09:52] VITALS: BMI 37.2
[2020-02-13] MEDS ORDERED: Midazolam HCl 2 mg/2 ml Vial ONE ×2 (06:41→06:52)
[2020-02-13] MEDS ORDERED: Fentanyl 100 MCG/2 ML VIAL ONE ×3 (06:41→11:33)
[2020-02-13] MEDS ORDERED: Lidocaine 1% (PF) 30 ML VIAL ONE (06:41)
[2020-02-13] MEDS ORDERED: Fentanyl 250 MCG/5 ML VIAL ONE (06:52)
[2020-02-13] MEDS ORDERED: Methylene Blue 50 MG/10 ML AMPUL ONE (08:50)
[2020-02-13] MEDS ORDERED: EPHEDRINE 25 MG/5 ML SYRINGE ONE (09:15)
[2020-02-13] MEDS ORDERED: Lidocaine 1% PF 5 ML VIAL ONE (09:15)
[2020-02-13] MEDS ORDERED: Metoclopramide HCl 10 MG/2 ML VIAL ONE (09:15)
[2020-02-13] MEDS ORDERED: Rocuronium Bromide 10 MG/ML (10ML VIAL) ONE (09:15)
[2020-02-13] MEDS ORDERED: Succinylcholine Chloride 20 MG/ML 10 ml SYRINGE FS ONE (09:15)
[2020-02-13] MEDS ORDERED: PROPOFOL 200 MG/20 ML VIAL ONE (09:15)
[2020-02-13] MEDS ORDERED: Glycopyrrolate 0.2 MG/ML 5 ML SYRINGE ONE (09:15)
[2020-02-13] MEDS ORDERED: Ondansetron PF 4 MG/2 ML Vial ONE (09:15)
[2020-02-13] MEDS ORDERED: PHENYLEPHRINE-NS 100 MCG/ML 10 ML SYRINGE ONE (09:15)
[2020-02-13] MEDS ORDERED: Bupivacaine HCl 0.5%/Epinephrine 1:200,000/PF 30 ml Vial ONE (09:15)
[2020-02-13] MEDS ORDERED: Promethazine HCl 25 MG/ML VIAL IM PRN ×2 (10:27→11:08)
[2020-02-13] MEDS ORDERED: Promethazine HCl 25 MG/ML VIAL SLOW IVP PRN (10:27)
[2020-02-13] MEDS ORDERED: Ondansetron HCl/PF 4 MG/2 ML Vial IVP PRN (10:27)
[2020-02-13] MEDS ORDERED: diphenhydrAMINE 50 MG/ML VIAL IM PRN (11:08)
[2020-02-13] MEDS ORDERED: diphenhydrAMINE 50 MG/ML VIAL IVP PRN (11:08)
[2020-02-13] MEDS ORDERED: Naloxone HCl 0.4 mg/ml Vial IV PRN (11:08)
[2020-02-13] MEDS ORDERED: diphenhydrAMINE 25 MG CAP PO PRN (11:08)
[2020-02-13] MEDS ORDERED: Zolpidem Tartrate 5 MG TAB PO PRN (11:08)
[2020-02-13] MEDS ORDERED: fentaNYL Citrate/PF 2,000 MCG in Sodium Chloride 0.9% 60 ML IV PRN (11:08)
[2020-02-13] MEDS ORDERED: Communication Order-Pharmacy FS SCH (11:15)
[2020-02-13] MEDS ORDERED: Ondansetron PF 4 MG/2 ML Vial IVP PRN (13:12)
[2020-02-13] MEDS ORDERED: HumaLOG 300 UNITS/3 ML VIAL SC PRN (13:12)
[2020-02-13] MEDS: busPIRone HCl 10 MG TAB PO SCH ×2 (14:11→20:50)
[2020-02-13] MEDS: Sodium Chloride 0.9% 1,000 ML IV SCH (14:11)
[2020-02-13] MEDS: Acetaminophen 325 MG TAB PO SCH ×2 (14:11→18:16)
[2020-02-13] MEDS: cefOXitin Sodium/Dextrose,Iso 2 GM in Premix Bag 1 BAG IVPB SCH ×2 (16:04→23:03)
--- NOTE | 2020-02-13 17:00 | OP ---
DATE OF PROCEDURE: 02/13/2020 PREOPERATIVE DIAGNOSIS: Acute on chronic diverticulitis. POSTOPERATIVE DIAGNOSIS: Acute on chronic diverticulitis. PROCEDURES PERFORMED: 1. Exploratory laparotomy, sigmoid colectomy with low pelvic anastomosis. 2. Open splenic flexure mobilization. 3. Open repair of small-bowel injury x2. DESCRIPTION OF PROCEDURE: The patient was taken to the operating room and laid supine on the operating room table. After general anesthetic was obtained, a [place] was placed. The abdomen was prepped and draped in a sterile fashion. Left subcostal 5 mm Optiview trocar was placed in usual fashion. High-flow pneumoperitoneum was obtained. There were significant dense adhesions to the previous midline incision. Decision was made to open. Midline incision was made above the umbilicus down toward the pubis. Cautery was dissected down into the abdominal cavity. Multiple posterior abdominal adhesions were taken down into the intraabdominal cavity. In one area, the small intestine was fused to the posterior peritoneum and in this area, there was an iatrogenic injury made to the small bowel and two holes right next to each other. All the other adhesions were taken down. The Bookwalter was able to be placed. The small bowel injuries were small and need to be repaired in running 3-0 Vicryl full thickness followed by 3-0 silk Lembert sutures. This appeared to repair the wounds completely with no obvious stenosis of the small bowel. Left colon mobilized along the white line of Toldt. Left ureter was found and excluded from the dissection. There was an area of dense chronic diverticular disease. Dissection was taken down to the pelvis. The low sigmoid colon was very much fused to the posterior bladder. This was all taken down sharply using sharp dissection taken down into the pelvis, where the rectosigmoid junction appeared viable. The tissues did not appear inflamed. Here, a stapler was fired across the rectosigmoid junction. The proximal mesentery was then mobilized using the Impact LigaSure. The base of the inferior mesenteric artery was taken using Impact LigaSure. Note, the left ureter again had been found and excluded from the dissection. The splenic flexure was then mobilized in the usual fashion all the way around to the transverse colon. The location in the distal transverse colon was found for proximal anvil placement, and a colotomy was made just distal here. The 31 anvil was passed proximally. The colon was stapled off and removed just distal to this. The distal transverse colon was able to be brought down into the pelvis under no tension. The base of the EEA was brought up through the anus and its sharp pin brought out on the antimesenteric surface of the colon below connected to the anvil from above and the anastomosis was performed. There were two good rings of tissue. Anastomosis was tested by air insufflation under water without leak. It was oversewn using 3-0 silk sutures. There was no tension on the staple line. No bleeding in the abdomen. All instrument counts, needle counts, and lap counts were correct. The previous small bowel repair appeared intact without evidence of any leakage. The abdomen was irrigated. Midline fascia was closed using #1 PDS from the top and the bottom and tied in the middle. Subcutaneous tissues were irrigated, and subcutaneous tissues were closed using a combination of 2-0 Prolene suture, skin darion, and Telfa shruthi were placed in between the darion. The patient was sent to Recovery in stable condition. All instrument counts, needle counts, and lap counts were correct. Job ID: [id number]
[2020-02-13] MEDS ORDERED: Dextrose 50% Abboject 50 ML SYRINGE SLOW IVP PRN (18:46)
[2020-02-13] MEDS ORDERED: Dextrose 5% in Water 1,000 ML IV PRN (18:46)
[2020-02-13] MEDS: Famotidine/PF 20 mg/2ml Vial SLOW IVP SCH (20:50)
[2020-02-13] MEDS: Acetaminophen 325 MG TAB PO PRN (20:50)
[2020-02-13] MEDS: Famotidine 20 MG TAB PO SCH (20:51)
[2020-02-14] MEDS: HumaLOG 300 UNITS/3 ML VIAL SC PRN ×5 (00:34→20:50)
[2020-02-14] MEDS: Acetaminophen 325 MG TAB PO SCH ×4 (00:34→19:21)
[2020-02-14] MEDS: Acetaminophen 325 MG TAB PO PRN (04:03)
[2020-02-14] MEDS: Sodium Chloride 0.9% 1,000 ML IV SCH ×2 (04:05→17:45)
[2020-02-14 04:56] LABS: #Eosinphils 0.1 thou/uL (0.0-0.7); #Lymphocytes 1.1 thou/uL (1.20-3.40); #Monocytes 0.9 thou/uL (0.11-0.59); #Neutrophils 6.7 thou/uL (1.40-6.50); %Basophils 0.4 % (0.0-1.0); %Eosinophils 0.6 % (0.0-10.0); %Lymphocytes 12.1 % (21.0-51.0); %Monocytes 10.7 % (0.0-10.0); %Neutrophils 76.2 % (42.0-75.0); Hemoglobin 10.2 g/dL (12.0-16.0); Mean Corpuscular HGB CONC 33.9 g/dL (32.0-36.0); Mean Corpuscular Hemoglobin 29.6 pg (27.0-31.0); Mean Corpuscular Volume 87.2 fL (78.0-98.0); Mean Platelet Volume 9.2 fL (7.4-10.4); Platelet Count 142 thou/uL (130-400); RBC Distribution Width 12.8 % (11.5-14.5); Red Blood Cell (RBC) Count 3.45 mill/uL (4.20-5.40); White Blood Cell (WBC) Count 8.8 thou/uL (4.8-10.8)
[2020-02-14 05:19] LABS: Anion Gap 10 mmol/L (10-20); BUN (Urea Nitrogen) 10 mg/dL (9.8-20.1); Calc. Creatinine Clearance 100 mL/min (70-130); Calcium 7.9 mg/dL (7.8-10.44); Carbon Dioxide 21 mmol/L (22-29); Chloride 106 mmol/L (98-107); Estimated GFR-MDRD 63; Glucose 229 mg/dL (70-105); Potassium 3.7 mmol/L (3.5-5.1); Sodium 133 mmol/L (136-145)
[2020-02-14] MEDS: Levothyroxine 150 MCG TAB PO SCH (05:56)
--- NOTE | 2020-02-14 08:44 | PDOC.GSPN ---
Surgery Progress Note: Subj - Subjective Narrative: c/o pain. Controlled with SIGN ARTIST. No nausea. [place] out Surgery Progress Note: Obj - Vital signs Vital signs: Vital Signs - Most Recent Temp Pulse Resp BP Pulse Ox 99.1 F 96 16 93/62 95 02/14/20 07:28 02/14/20 07:28 02/14/20 07:28 02/14/20 07:28 02/14/20 07:28 - Physical Exam General: no distress Cardiovascular: regular rate and rhythm Respiratory: clear to auscultation Abdomen: soft, appropriately tender Wound: healing well Surgery Progress Note: Results - Labs Result Diagrams: 02/14/20 04:37 02/14/20 04:37 Lab results: Laboratory Results - last 24 hr 02/13/20 02/14/20 02/14/20 23:27 04:37 04:37 WBC 8.8 RBC 3.45 L Hgb 10.2 L Hct 30.1 L MCV 87.2 MCH 29.6 MCHC 33.9 RDW 12.8 Plt Count 142 MPV 9.2 Neutrophils % 76.2 H Lymphocytes % 12.1 L Monocytes % 10.7 H Eosinophils % 0.6 Basophils % 0.4 Neutrophils # 6.7 H Lymphocytes # 1.1 L Monocytes # 0.9 H Eosinophils # 0.1 Basophils # 0.0 Sodium 133 L Potassium 3.7 Chloride 106 Carbon Dioxide 21 L Anion Gap 10 BUN 10 Creatinine 0.91 Estimated GFR (MDRD) 63 Glucose 229 H POC Glucose 362 H Calcium 7.9 02/14/20 05:26 WBC RBC Hgb Hct MCV MCH MCHC RDW Plt Count MPV Neutrophils % Lymphocytes % Monocytes % Eosinophils % Basophils % Neutrophils # Lymphocytes # Monocytes # Eosinophils # Basophils # Sodium Potassium Chloride Carbon Dioxide Anion Gap BUN Creatinine Estimated GFR (MDRD) Glucose POC Glucose 246 H Calcium Surgery Progress Note: A/P - Problem (1) Acute diverticulitis Current Visit: No Code(s): K57.92 - DVTRCLI OF INTEST, PART UNSP, W/O PERF OR ABSCESS W/O BLEED Status: Acute - Plan Plan: POD 1 -clears today -encouraged ambulation and IS
[2020-02-14] MEDS: Lisinopril 20 MG TAB PO SCH (09:10)
[2020-02-14] MEDS: Famotidine/PF 20 mg/2ml Vial SLOW IVP SCH ×2 (09:10→20:01)
[2020-02-14] MEDS: Famotidine 20 MG TAB PO SCH ×2 (09:10→20:00)
[2020-02-14] MEDS: busPIRone HCl 10 MG TAB PO SCH ×3 (09:10→20:00)
[2020-02-14] MEDS: Enoxaparin Sodium 40 MG/0.4 ML SYRINGE SC SCH (11:24)
[2020-02-15] MEDS: Acetaminophen 325 MG TAB PO SCH ×4 (00:38→18:41)
[2020-02-15 04:58] LABS: #Eosinphils 0.2 thou/uL (0.0-0.7); #Lymphocytes 1.4 thou/uL (1.20-3.40); #Monocytes 0.6 thou/uL (0.11-0.59); #Neutrophils 5.6 thou/uL (1.40-6.50); %Basophils 0.1 % (0.0-1.0); %Eosinophils 2.1 % (0.0-10.0); %Monocytes 7.3 % (0.0-10.0); %Neutrophils 72.6 % (42.0-75.0); Mean Corpuscular HGB CONC 33.5 g/dL (32.0-36.0); Mean Corpuscular Hemoglobin 29.4 pg (27.0-31.0); Mean Corpuscular Volume 87.8 fL (78.0-98.0); Platelet Count 122 thou/uL (130-400); RBC Distribution Width 12.8 % (11.5-14.5); Red Blood Cell (RBC) Count 3.39 mill/uL (4.20-5.40); White Blood Cell (WBC) Count 7.7 thou/uL (4.8-10.8)
[2020-02-15 05:18] LABS: Anion Gap 13 mmol/L (10-20); BUN (Urea Nitrogen) 7 mg/dL (9.8-20.1); Calc. Creatinine Clearance 112 mL/min (70-130); Calcium 8.4 mg/dL (7.8-10.44); Carbon Dioxide 19 mmol/L (22-29); Chloride 108 mmol/L (98-107); Estimated GFR-MDRD 72; Glucose 205 mg/dL (70-105); Potassium 3.6 mmol/L (3.5-5.1); Sodium 136 mmol/L (136-145)
[2020-02-15] MEDS: Levothyroxine 150 MCG TAB PO SCH (06:46)
[2020-02-15] MEDS: HumaLOG 300 UNITS/3 ML VIAL SC PRN ×4 (06:46→20:43)
[2020-02-15] MEDS: Sodium Chloride 0.9% 1,000 ML IV SCH (06:46)
[2020-02-15] MEDS ORDERED: HYDROcodone/Acetaminophen 7.5/325 mg Tablet PO PRN (08:36)
[2020-02-15] MEDS ORDERED: Fentanyl 100 MCG/2 ML VIAL SLOW IVP PRN (08:36)
--- NOTE | 2020-02-15 08:40 | PDOC.GSPN ---
Surgery Progress Note: Subj - Subjective Patient reports: pain well controlled, voiding w/o difficulty (No nausea) Surgery Progress Note: Obj - Vital signs Vital signs: Vital Signs - Most Recent Temp Pulse Resp BP Pulse Ox 99.1 F 98 16 126/79 96 02/15/20 08:14 02/15/20 08:14 02/15/20 08:14 02/15/20 08:14 02/15/20 08:14 - Physical Exam General: no distress Cardiovascular: regular rate and rhythm Respiratory: clear to auscultation Abdomen: soft, appropriately tender Wound: healing well (shruthi removed) Surgery Progress Note: Results - Labs Result Diagrams: 02/15/20 04:49 02/15/20 04:49 Lab results: Laboratory Results - last 24 hr 02/15/20 02/15/20 02/15/20 04:49 04:49 04:52 WBC 7.7 RBC 3.39 L Hgb 10.0 L Hct 29.8 L MCV 87.8 MCH 29.4 MCHC 33.5 RDW 12.8 Plt Count 122 L MPV 9.0 Neutrophils % 72.6 Lymphocytes % 18.0 L Monocytes % 7.3 Eosinophils % 2.1 Basophils % 0.1 Neutrophils # 5.6 Lymphocytes # 1.4 Monocytes # 0.6 H Eosinophils # 0.2 Basophils # 0.0 Sodium 136 Potassium 3.6 Chloride 108 H Carbon Dioxide 19 L Anion Gap 13 BUN 7 L Creatinine 0.81 Estimated GFR (MDRD) 72 Glucose 205 H POC Glucose 214 H Calcium 8.4 Surgery Progress Note: A/P - Problem (1) Acute diverticulitis Current Visit: No Code(s): K57.92 - DVTRCLI OF INTEST, PART UNSP, W/O PERF OR ABSCESS W/O BLEED Status: Acute - Plan Plan: POD 2 -full liquids -shruthi removed -DC CHECK INSPECTOR, start oral pain meds
[2020-02-15] MEDS: Enoxaparin Sodium 40 MG/0.4 ML SYRINGE SC SCH (09:10)
[2020-02-15] MEDS: Famotidine 20 MG TAB PO SCH ×2 (09:11→20:42)
[2020-02-15] MEDS: busPIRone HCl 10 MG TAB PO SCH ×3 (09:11→20:42)
[2020-02-15] MEDS: Famotidine/PF 20 mg/2ml Vial SLOW IVP SCH ×2 (09:12→21:51)
[2020-02-15] MEDS: Lisinopril 20 MG TAB PO SCH (09:12)
[2020-02-15] MEDS: HYDROcodone/Acetaminophen 7.5/325 mg Tablet PO PRN ×2 (14:40→23:19)
[2020-02-16] MEDS: Acetaminophen 325 MG TAB PO SCH ×4 (01:23→18:41)
[2020-02-16] MEDS ORDERED: Simethicone Chewable 80 MG TAB PO SCH (01:30)
[2020-02-16] MEDS: Fentanyl 100 MCG/2 ML VIAL SLOW IVP PRN ×2 (03:17→14:39)
[2020-02-16] MEDS: Levothyroxine 150 MCG TAB PO SCH (05:14)
[2020-02-16] MEDS: HumaLOG 300 UNITS/3 ML VIAL SC PRN ×4 (06:30→21:44)
[2020-02-16] MEDS: Famotidine 20 MG TAB PO SCH ×2 (09:34→20:21)
[2020-02-16] MEDS: Lisinopril 20 MG TAB PO SCH (09:34)
[2020-02-16] MEDS: Simethicone Chewable 80 MG TAB PO SCH ×4 (09:34→21:44)
[2020-02-16] MEDS: busPIRone HCl 10 MG TAB PO SCH ×3 (09:34→20:21)
[2020-02-16] MEDS: Enoxaparin Sodium 40 MG/0.4 ML SYRINGE SC SCH (09:34)
--- NOTE | 2020-02-16 09:40 | PDOC.GSPN ---
Surgery Progress Note: Subj - Subjective Narrative: c/o bloating and nausea overnight. Better today. Passing minimal flatus Surgery Progress Note: Obj - Vital signs Vital signs: Vital Signs - Most Recent Temp Pulse Resp BP Pulse Ox 98.9 F 92 14 158/90 H 98 02/16/20 07:49 02/16/20 07:49 02/16/20 07:49 02/16/20 07:49 02/16/20 07:49 - Physical Exam General: no distress Cardiovascular: regular rate and rhythm Respiratory: clear to auscultation Abdomen: soft, appropriately tender Wound: healing well (Dressings changed) Surgery Progress Note: Results - Labs Result Diagrams: 02/15/20 04:49 02/15/20 04:49 Lab results: Laboratory Results - last 24 hr 02/16/20 05:17 POC Glucose 225 H Surgery Progress Note: A/P - Problem (1) Acute diverticulitis Current Visit: No Code(s): K57.92 - DVTRCLI OF INTEST, PART UNSP, W/O PERF OR ABSCESS W/O BLEED Status: Acute - Plan Plan: POD 3 -stay on fulls till more bowel function -encouraged her to ambulate -wound healing well
[2020-02-16] MEDS: Famotidine/PF 20 mg/2ml Vial SLOW IVP SCH ×2 (10:08→20:21)
[2020-02-16] MEDS: HYDROcodone/Acetaminophen 7.5/325 mg Tablet PO PRN ×2 (10:19→20:21)
[2020-02-16] MEDS: Ondansetron PF 4 MG/2 ML Vial IVP PRN ×2 (12:30→22:52)
[2020-02-17] MEDS: Acetaminophen 325 MG TAB PO SCH ×4 (00:34→19:12)
[2020-02-17] MEDS: HYDROcodone/Acetaminophen 7.5/325 mg Tablet PO PRN ×2 (03:42→09:18)
[2020-02-17] MEDS: Levothyroxine 150 MCG TAB PO SCH (05:42)
[2020-02-17] MEDS: HumaLOG 300 UNITS/3 ML VIAL SC PRN ×2 (05:44→12:05)
[2020-02-17 05:56] LABS: #Eosinphils 0.2 thou/uL (0.0-0.7); #Lymphocytes 1.1 thou/uL (1.20-3.40); #Monocytes 0.6 thou/uL (0.11-0.59); #Neutrophils 3.1 thou/uL (1.40-6.50); %Basophils 0.5 % (0.0-1.0); %Eosinophils 3.8 % (0.0-10.0); %Monocytes 11.7 % (0.0-10.0); Hemoglobin 9.7 g/dL (12.0-16.0); Mean Corpuscular HGB CONC 33.7 g/dL (32.0-36.0); Mean Corpuscular Hemoglobin 29.7 pg (27.0-31.0); Mean Corpuscular Volume 88.1 fL (78.0-98.0); Mean Platelet Volume 8.7 fL (7.4-10.4); Platelet Count 188 thou/uL (130-400); RBC Distribution Width 12.7 % (11.5-14.5); Red Blood Cell (RBC) Count 3.28 mill/uL (4.20-5.40)
[2020-02-17 06:16] LABS: Anion Gap 17 mmol/L (10-20); BUN (Urea Nitrogen) 9 mg/dL (9.8-20.1); Calc. Creatinine Clearance 127 mL/min (70-130); Calcium 8.5 mg/dL (7.8-10.44); Carbon Dioxide 18 mmol/L (22-29); Chloride 105 mmol/L (98-107); Estimated GFR-MDRD 83; Glucose 181 mg/dL (70-105); Potassium 3.5 mmol/L (3.5-5.1); Sodium 136 mmol/L (136-145)
[2020-02-17] MEDS ORDERED: Milk Of Magnesia 30 ML UDCUP PO SCH (09:15)
[2020-02-17] MEDS: Famotidine/PF 20 mg/2ml Vial SLOW IVP SCH ×2 (09:17→21:25)
[2020-02-17] MEDS: Simethicone Chewable 80 MG TAB PO SCH ×4 (09:17→21:26)
[2020-02-17] MEDS: Lisinopril 20 MG TAB PO SCH (09:17)
[2020-02-17] MEDS: busPIRone HCl 10 MG TAB PO SCH ×3 (09:17→21:24)
[2020-02-17] MEDS: Famotidine 20 MG TAB PO SCH ×2 (09:17→21:25)
[2020-02-17] MEDS: Enoxaparin Sodium 40 MG/0.4 ML SYRINGE SC SCH (09:22)
--- NOTE | 2020-02-17 09:34 | PRG ---
DATE OF SERVICE: 02/17/2020 SUBJECTIVE: Ms. Delgado is still complaining of bloating, mild nausea, no vomiting. She is not passing any gas yet. She has been limited in ambulation secondary to her bloating. OBJECTIVE: She is afebrile and her vital signs are stable. She is voiding regularly. Her abdomen is distended, but she has bowel sounds. Her wound is healing well. LABORATORY DATA: White blood cell count today is 5, hemoglobin 9.7, platelet count is 188 with normal differential. Creatinine is 0.72. Her sugars have been running in the high 100s to low 200s. ASSESSMENT: Postoperative left colectomy for chronic diverticulitis with slow progress. PLAN: Continue to encourage ambulation. We will try dose of milk of magnesium today. I suspect she will need another day or 2 in the hospital. Job ID: [id number]
[2020-02-17] MEDS: Ondansetron PF 4 MG/2 ML Vial IVP PRN (15:24)
[2020-02-17] MEDS ORDERED: Sodium Chloride 0.9% (PF) 10 ML VIAL FS PRN (16:13)
[2020-02-17] MEDS ORDERED: Pantoprazole 40 MG VIAL IVP SCH (16:15)
[2020-02-17] MEDS: Sodium Chloride 0.9% 1,000 ML IV SCH (16:54)
--- NOTE | 2020-02-17 17:07 | RAD ---
EXAM: XR Abdomen 2 View PROVIDED CLINICAL HISTORY: Vomiting COMPARISON: None FINDINGS: Dilated gas-filled loops of small bowel are seen. While findings could be related to ileus, there are differential air-fluid levels which can be seen with a mechanical partial small bowel obstruction. Midline skin clips are seen with surgical clips overlying the right upper quadrant. No suspicious irwin cifications are identified. The osseous structures have a normal appearance. Question of tiny right pleural effusion. Volume loss is present at the left lung base. IMPRESSION: Dilated loops of small bowel with air-fluid levels visualized. While findings could be related to pos toperative ileus, findings are worrisome for partial small bowel obstruction given differential air-fluid levels.
[2020-02-17] MEDS: Promethazine HCl 25 MG/ML VIAL IM PRN (20:09)
[2020-02-18] MEDS: Acetaminophen 325 MG TAB PO SCH ×4 (02:40→17:35)
[2020-02-18] MEDS: Ondansetron PF 4 MG/2 ML Vial IVP PRN ×2 (06:50→11:34)
[2020-02-18] MEDS: Levothyroxine 150 MCG TAB PO SCH (06:50)
--- NOTE | 2020-02-18 08:24 | PRG ---
DATE OF SERVICE: 02/17/2020 SUBJECTIVE: Ms. Delgado feels worse today. She vomited overnight. She is passing some gas and did have a bowel movement. She has been up and around. She is urinating regularly. OBJECTIVE: VITAL SIGNS: She is afebrile and her vital signs are stable. ABDOMEN: Distended. It is diffuse mildly tender without guarding or rebound. Her midline dressings were removed and her wound is healing well. There is no evidence of infection. ASSESSMENT: Postop left colectomy; diabetes mellitus, poorly controlled. PLAN: NG tube today. I really think that she is close, IV fluids are running more towards maintenance. Job ID: [id number]
[2020-02-18] MEDS: Famotidine 20 MG TAB PO SCH (09:31)
[2020-02-18] MEDS: busPIRone HCl 10 MG TAB PO SCH ×3 (09:31→20:17)
[2020-02-18] MEDS: Simethicone Chewable 80 MG TAB PO SCH ×4 (09:32→23:09)
[2020-02-18] MEDS: Lisinopril 20 MG TAB PO SCH (09:32)
[2020-02-18] MEDS: Famotidine/PF 20 mg/2ml Vial SLOW IVP SCH (10:12)
[2020-02-18] MEDS: Pantoprazole 40 MG VIAL IVP SCH (10:13)
[2020-02-18] MEDS: Sodium Chloride 0.9% 1,000 ML IV SCH ×2 (10:13→20:14)
[2020-02-18] MEDS: Enoxaparin Sodium 40 MG/0.4 ML SYRINGE SC SCH (10:13)
[2020-02-18] MEDS: Fentanyl 100 MCG/2 ML VIAL SLOW IVP PRN ×3 (11:42→23:36)
[2020-02-18] MEDS: Promethazine HCl 25 MG/ML VIAL IM PRN (13:39)
[2020-02-18] MEDS ORDERED: Ketorolac Tromethamine 30 MG/ML VIAL IVP PRN ×2 (14:14→14:23)
--- NOTE | 2020-02-18 15:41 | RAD ---
EXAM: XR Abdomen 2 View/1 View Cxr PROVIDED CLINICAL HISTORY: Ileus COMPARISON: Is the abdomen on 02/17/2020 FINDINGS: Cardiac silhouette is magnified by projection. There is prominence of the right cardiac border, but t here was evidence of a pericardial cyst along the right cardiac border on prior CT abdomen on 11/26/2019. Pulmonary vasculature is within normal limits. Linear area of increased density is seen at the left lung base likely related to subsegmental atelectasis, but continued follow-up is suggested. Slight blunting of the right lateral costophrenic angle is noted suggesting tiny right ple ural effusion. Nasogastric tube has been placed in the interim with tip overlying the expected location of the gastr ic antrum. Previously noted prominent gas-filled dilated loops of small bowel are again seen. Surgical clips again overlie the right upper quadrant with midline skin clips overlying the abdomen a nd pelvis. Surgical clips are seen overlying the right hemipelvis. Phleboliths also overlie the pelvis. Mild degenerative changes noted in the spine. IMPRESSION: 1. Persistent dilated and distended gas-filled loops of small bowel which may represent either postop erative ileus or partial small bowel obstruction. 2. Interval placement of nasogastric tube. 3. Small right pleural effusion. 4. Probable subsegmental atelectasis left lung base. Continued follow-up is recommended.
[2020-02-18] MEDS: Cepastat Lozenges 1 LOZ PO PRN ×3 (18:22→23:36)
[2020-02-19] MEDS: Acetaminophen 325 MG TAB PO SCH ×4 (01:55→18:18)
[2020-02-19] MEDS: Cepastat Lozenges 1 LOZ PO PRN ×4 (03:19→20:13)
[2020-02-19 05:25] LABS: #Eosinphils 0.4 thou/uL (0.0-0.7); #Lymphocytes 1.4 thou/uL (1.20-3.40); #Monocytes 0.5 thou/uL (0.11-0.59); #Neutrophils 3.2 thou/uL (1.40-6.50); %Basophils 0.4 % (0.0-1.0); %Eosinophils 7.9 % (0.0-10.0); %Lymphocytes 24.8 % (21.0-51.0); %Monocytes 8.8 % (0.0-10.0); %Neutrophils 58.1 % (42.0-75.0); Hemoglobin 9.4 g/dL (12.0-16.0); Mean Corpuscular HGB CONC 34.2 g/dL (32.0-36.0); Mean Corpuscular Hemoglobin 29.6 pg (27.0-31.0); Mean Corpuscular Volume 86.6 fL (78.0-98.0); Mean Platelet Volume 7.4 fL (7.4-10.4); Platelet Count 243 thou/uL (130-400); RBC Distribution Width 12.9 % (11.5-14.5); Red Blood Cell (RBC) Count 3.18 mill/uL (4.20-5.40); White Blood Cell (WBC) Count 5.4 thou/uL (4.8-10.8)
[2020-02-19 05:39] LABS: Anion Gap 14 mmol/L (10-20); BUN (Urea Nitrogen) 7 mg/dL (9.8-20.1); Calc. Creatinine Clearance 127 mL/min (70-130); Calcium 7.7 mg/dL (7.8-10.44); Carbon Dioxide 19 mmol/L (22-29); Chloride 108 mmol/L (98-107); Estimated GFR-MDRD 83; Glucose 125 mg/dL (70-105); Potassium 3.1 mmol/L (3.5-5.1); Sodium 138 mmol/L (136-145)
[2020-02-19] MEDS: Levothyroxine 150 MCG TAB PO SCH (05:58)
[2020-02-19] MEDS: Sodium Chloride 0.9% 1,000 ML IV SCH (05:58)
[2020-02-19] MEDS: busPIRone HCl 10 MG TAB PO SCH ×3 (08:09→20:13)
[2020-02-19] MEDS: Lisinopril 20 MG TAB PO SCH (08:09)
[2020-02-19] MEDS: Simethicone Chewable 80 MG TAB PO SCH ×3 (08:09→20:13)
[2020-02-19] MEDS: Enoxaparin Sodium 40 MG/0.4 ML SYRINGE SC SCH (08:09)
[2020-02-19] MEDS: Pantoprazole 40 MG VIAL IVP SCH (08:10)
[2020-02-19] MEDS ORDERED: Calcium Gluc 4.6 MEQ/10 ML (100 MG/ML) SLOW IVP SCH (08:57)
[2020-02-19] MEDS ORDERED: Potassium Chloride 20 MEQ in Premix Bag 1 BAG IVPB SCH ×2 (09:00→09:15)
--- NOTE | 2020-02-19 09:18 | PRG ---
DATE OF SERVICE: 02/19/2020 SUBJECTIVE: Ms. Danny Anderson feels slightly improved today. She is gagging because of her NG tube and would like it to be removed. She continues to have bowel movements. C. diff is negative. Limited in ambulation by the NG tube placement. OBJECTIVE: VITAL SIGNS: She is afebrile. Vital signs are stable. ABDOMEN: Soft. It is mildly distended, but there is active bowel sounds. Her midline dressing is changed and cotton-tipped probe was used to probe in between darion. There is no purulence in her wound. No evidence of infection. LABORATORY DATA: White cell count is 5, hemoglobin is 9.4, normal differential. Sodium 138, potassium 3.1, creatinine is 0.72. ASSESSMENT: Postoperative expected ileus after left colectomy. PLAN: Discontinue NG. Encouraged her to be up and around. Await this expected postop ileus to resolve. Job ID: [id number]
[2020-02-19] MEDS: HumaLOG 300 UNITS/3 ML VIAL SC PRN (20:13)
[2020-02-20] MEDS: Cepastat Lozenges 1 LOZ PO PRN ×4 (00:08→21:13)
[2020-02-20] MEDS: Simethicone Chewable 80 MG TAB PO SCH ×5 (00:09→21:13)
[2020-02-20] MEDS: Acetaminophen 325 MG TAB PO PRN (00:09)
[2020-02-20] MEDS: Acetaminophen 325 MG TAB PO SCH ×4 (02:02→18:25)
[2020-02-20] MEDS: Levothyroxine 150 MCG TAB PO SCH (05:05)
[2020-02-20] MEDS: busPIRone HCl 10 MG TAB PO SCH ×3 (09:25→21:13)
[2020-02-20] MEDS: Lisinopril 20 MG TAB PO SCH (09:26)
[2020-02-20] MEDS: Pantoprazole 40 MG VIAL IVP SCH (09:28)
[2020-02-20] MEDS: Enoxaparin Sodium 40 MG/0.4 ML SYRINGE SC SCH (10:51)
[2020-02-20] MEDS ORDERED: traMADol HCl 50 MG TAB PO PRN ×2 (15:43)
--- NOTE | 2020-02-20 15:53 | PRG ---
DATE OF SERVICE: 02/20/2020 SUBJECTIVE: Ms. Delgado is doing better today. She denies nausea. She is still passing gas. OBJECTIVE: VITAL SIGNS: She is afebrile. Vital signs are stable. ABDOMEN: Soft. The wounds are healing well. The wounds were redressed. There is no infection. ASSESSMENT: Postop left colectomy, pathology benign. PLAN: Start back on clear liquids today. Suspect full liquids tomorrow and home on . We will restart her Elavil from home. Job ID: [id number]
[2020-02-20] MEDS: Sodium Chloride 0.9% 1,000 ML IV SCH (18:27)
[2020-02-20] MEDS: HumaLOG 300 UNITS/3 ML VIAL SC PRN (19:06)
[2020-02-20] MEDS: Amitriptyline HCl 10 MG TAB PO SCH (21:13)
[2020-02-21] MEDS: Ondansetron PF 4 MG/2 ML Vial IVP PRN ×2 (00:07→21:22)
[2020-02-21] MEDS: hydrALAZINE 20 MG/ML VIAL SLOW IVP PRN (00:07)
[2020-02-21] MEDS: Cepastat Lozenges 1 LOZ PO PRN ×3 (01:31→16:59)
[2020-02-21] MEDS: Acetaminophen 325 MG TAB PO SCH ×4 (01:31→18:30)
[2020-02-21] MEDS: Levothyroxine 150 MCG TAB PO SCH (05:49)
[2020-02-21] MEDS: Sodium Chloride 0.9% 1,000 ML IV SCH (05:49)
[2020-02-21] MEDS: busPIRone HCl 10 MG TAB PO SCH ×3 (09:56→21:22)
[2020-02-21] MEDS: Simethicone Chewable 80 MG TAB PO SCH ×4 (09:56→21:22)
[2020-02-21] MEDS: Lisinopril 20 MG TAB PO SCH (09:57)
[2020-02-21] MEDS: Pantoprazole 40 MG VIAL IVP SCH (09:57)
--- NOTE | 2020-02-21 10:16 | PRG ---
DATE OF SERVICE: 02/21/2020 SUBJECTIVE: Ms. Anderson is doing better. She tolerated the clear liquids without difficulty. No nausea or vomiting. She is passing more gas and having more stools. OBJECTIVE: VITAL SIGNS: She is afebrile. Vital signs are stable. ABDOMEN: Soft. Her wound is healing well. There is no evidence of infection. LABORATORY DATA: Her sugars are very well controlled in the mid 100s. ASSESSMENT: Postop left colectomy for chronic diverticulitis, path benign. PLAN: Advance to full liquids. Hep-Lock the fluids. I suspect she will be ready for discharge tomorrow. Job ID: [id number]
[2020-02-21] MEDS: Enoxaparin Sodium 40 MG/0.4 ML SYRINGE SC SCH (10:36)
[2020-02-21] MEDS: HumaLOG 300 UNITS/3 ML VIAL SC PRN (16:38)
[2020-02-21] MEDS: Amitriptyline HCl 10 MG TAB PO SCH (21:22)
[2020-02-22] MEDS: hydrALAZINE 20 MG/ML VIAL SLOW IVP PRN (00:03)
[2020-02-22] MEDS: Acetaminophen 325 MG TAB PO SCH ×3 (02:36→13:35)
[2020-02-22] MEDS: Cepastat Lozenges 1 LOZ PO PRN (04:12)
[2020-02-22] MEDS: Levothyroxine 150 MCG TAB PO SCH (06:36)
[2020-02-22] MEDS: Enoxaparin Sodium 40 MG/0.4 ML SYRINGE SC SCH (08:00)
[2020-02-22] MEDS: busPIRone HCl 10 MG TAB PO SCH (08:00)
[2020-02-22] MEDS: Simethicone Chewable 80 MG TAB PO SCH ×2 (08:00→12:00)
[2020-02-22] MEDS: Lisinopril 20 MG TAB PO SCH (08:00)
[2020-02-22] MEDS: Pantoprazole 40 MG VIAL IVP SCH (08:00)
[2020-02-22] MEDS: HumaLOG 300 UNITS/3 ML VIAL SC PRN (11:52)
[2020-02-22 11:55] VITALS: BP 146/80; TEMP 98.6
--- NOTE | 2020-02-22 12:00 | DIS ---
DATE OF ADMISSION: 02/13/2020 DATE OF DISCHARGE: 02/22/2020 ADMIT DIAGNOSES: Chronic diverticulitis. DISCHARGE DIAGNOSIS: Chronic diverticulitis. PROCEDURE: Left colectomy by Dr. Chua without complication. CONDITION ON DISCHARGE: Improved. STAFF: Dr. Chua. HOSPITAL COURSE: The patient's postop course was complicated by expected postop ileus. This resolved after replacement of NG tube. On the day of discharge, she is doing better, she is ambulatory. She is on full liquids. Her wound is healing well. She is being discharged today. She will follow up with me next week in the office for suture, staple removal. Prescriptions for hydrocodone and Zofran sent over to her pharmacy at [facility] in [place]. Job ID: [id number]
--- NOTE | 2020-02-23 07:43 | PQF ---
DAVID PARKER BRYAN DAVID MD [id number] [facility] [id number] CLINICAL DOCUMENTATION CLARIFICATION FORM: POST DISCHARGE Addendum to original discharge summary date: ____ Late entry note date: __ DATE: 02/23/2020 ATTN: Evin Galarza Please exercise your independent, professional judgment in responding to the clarification form. Clinical indicators are provided on the bottom of this form for your review Please check appropriate box(s): [ ] Iatrogenic Injury is a intraoperative laceration complication of colectomy [ ] Iatrogenic Injury is not a complication and was only part of surgery [ ] Other diagnosis [ ] Unable to determine In addition, please specify: Present on Admission (POA): [ ] Yes [ ] No [ ] Unable to determine CLINICAL INDICATORS - SIGNS / SYMPTOMS / LABS Operative report p1 02/12 Dr Chua In one area, th small intestine was fused to the posterior peritoneum and in this area, there was an iatrogenic injury made to small bowel and two holes right next to each other Operative report p1 02/12 Dr Chua The small bowel injuries were small and need to be repaired in running 3-0 Vicryl full thickness followed by 3-0 silk Lembert sutures. RISK FACTORS Operative report p1 02/12 - Acute on Chronic Diverticulitis Discharge summary p1 4 post op ileus Anesthesia Record p2 02/12 DM Anesthesia Record p2 02/12 Morbid Obesity TREATMENT: Operative report p1 02/12 Exploratory laparotomy, sigmoid colectomy Operative report p1 02/12 Open repair of small-bowel injury x2 JAN 22 IV Cefoxitin 2gm JAN 22 IVF Ns 1L JAN 22 IV Protonix 40mg (This form is maintained as a part of the permanent medical record) 2014 [employer]. All Rights Reserved [email or web address]
== END 2020-02-22 14:30 | disposition home or self-care (01) | DRG 330 ==
LOC: SURG A 02-13 06:03 → EDSTATUS 02-13 10:00 → SJJU 02-13 12:37
PROVIDERS: ADMIT Surgery; ATTEND Surgery
PROC: 0DTN0ZZ Resection of Sigmoid Colon, Open Approach (ICD-10-PCS; principal; 2020-02-13)
DX: K57.32 Diverticulitis of large intestine without perforation or abscess without bleeding (principal); K56.7 Ileus, unspecified; E11.65 Type 2 diabetes mellitus with hyperglycemia; E89.0 Postprocedural hypothyroidism; I10 Essential (primary) hypertension; E78.5 Hyperlipidemia, unspecified; E66.01 Morbid (severe) obesity due to excess calories; Z79.899 Other long term (current) drug therapy; Z79.4 Long term (current) use of insulin; Z88.0 Allergy status to penicillin; Z88.2 Allergy status to sulfonamides; Z88.8 Allergy status to other drugs, medicaments and biological substances; Z68.37 Body mass index [BMI] 37.0-37.9, adult
CPT/HCPCS: 36415; 36416; 74019; 74022; 80048; 85025; 87324; 87449; 88307; C9113; J0360; J0670; J0694; J1200; J1650; J2001; J2250; J2405; J2550; J2704; J2765; J3010; J3480; J3490; Q9968; S0028